=== PATIENT | female | born 1990 ===

== ENCOUNTER 2018-12-27 10:47 | Outpatient (CLI) | payer OTHER ==
[~2018-12-27] VITALS: Ht 162.6 cm; Wt 59.0 kg
== END 2018-12-27 11:00 | disposition home or self-care (01) ==
LOC: OFIC 805 10:47
DX: B37.9 Candidiasis, unspecified (principal); R07.0 Pain in throat; R13.19 Other dysphagia; I00 Rheumatic fever without heart involvement